=== PATIENT | female | born 1975 | race Caucasian/White ===

== ENCOUNTER 2016-11-29 15:33 | Emergency (ER) | payer MEDICAID, OTHER ==
[2016-11-29 15:58] VITALS: BP 121/66; PULSE 75; RESP 16; TEMP 96.4; O2SAT 94
--- NOTE | 2016-11-29 16:12 | UCPHY ---
H & P Time Seen by Provider: 11/29/16 15:55 Patient Type: Established HPI/ROS: Chief complaint. Abdominal pain HPI. 41-year-old female presents emergency department with lower right abdominal pain that began this morning. She has had fatigue for 1 week. Bilateral leg pain for 1 week. She had diarrhea last evening and then again this morning. Her pain is in the lower right side of her abdomen and described as crampy with radiation to the left side of her abdomen as well as to the left flank. Her discomfort is worse with urination as well as movement. Better when lying still. She has burning after urination. She denies fever nausea vomiting. She also had right upper quadrant pain 2 times this week but not now. She has had a cholecystectomy in the past. ROS Constitutional. no fever/chills, no weakness Eyes. no problems with vision ENT. no sore throat, no nasal drainage Cardiovascular. no chest pain Respiratory. no shortness of breath, no cough Abdominal. Lower right abdominal pain with some diarrhea but no nausea or vomit . Burning after urination MS. no calf pain/swelling, no neck/back pain, no joint pain Skin. no rash Lymph. no swollen glands Neuro. no headache, no dizziness, no difficulty walking or with speech Past Medical/Surgical History: Past medical history seen for interstitial cystitis, gluten sensitive, chronic back pain, cholecystectomy Social History: Single, nonsmoker, no alcohol Smoking Status: Never smoked Physical Exam: General Appearance: Alert well-developed female mild distress vital signs are stable Eyes: Pupils equal and round no pallor or injection. ENT, Mouth: Mucous membranes are moist. Respiratory: There are no retractions, lungs are clear to auscultation. Cardiovascular: Regular rate and rhythm. Gastrointestinal: Abdomen is soft with mild tenderness in the lower right quadrant of her abdomen. No left-sided tenderness. No epigastric or right upper quadrant discomfort. No masses. Normal bowel sounds Neurological: Awake and alert, sensory and motor exams grossly normal. Skin: Warm and dry, no rashes. Musculoskeletal: Neck is supple nontender. Extremities symmetrical, full range of motion. Psychiatric: Patient is oriented X 3, there is no agitation. Constitutional: Initial Vital Signs Temperature (C) 35.8 C L 11/29/16 15:55 Heart Rate 75 11/29/16 15:55 Respiratory Rate 16 11/29/16 15:55 Blood Pressure 121/66 H 11/29/16 15:55 O2 Sat (%) 94 11/29/16 15:55 O2 Delivery Mode Room Air Allergies/Adverse Reactions: Penicillins Allergy (Verified 11/29/16 15:54) Home Medications: Medication Instructions Recorded NK [No Known Home Meds] 11/29/16 Medical Decision Making - Diagnostics Imaging: CT abdomen and pelvis with IV contrast reviewed and discussed with Dr. Ruiz shows normal appendix. No acute findings. Moderate constipation especially in the ascending colon Procedures: IV normal saline. Patient currently declines medication for pain or nausea ED Course/Re-evaluation: Re-evaluation at 6:45 p.m.. The patient and I discussed imaging and lab results. We discussed treatment plan including criteria for return and importance of follow-up and further evaluation. She expresses understanding and agreement Differential Diagnosis: I considered appendicitis, diverticulitis, urinary tract infection and pyelonephritis - Data Points Laboratory Results: Laboratory Results 11/29/16 16:30 11/29/16 16:30 11/29/16 11/29/16 17:15 16:30 WBC 7.20 10^3/uL (3.80-9.50) RBC 4.55 10^6/uL (4.18-5.33) Hgb 13.5 g/dL (12.6-16.3) Hct 39.0 % (38.0-47.0) MCV 85.7 fL (81.5-99.8) MCH 29.7 pg (27.9-34.1) MCHC 34.6 g/dL (32.4-36.7) RDW 13.1 % (11.5-15.2) Plt Count 244 10^3/uL (150-400) MPV 9.9 fL (8.7-11.7) Neut % (Auto) 63.2 % (39.3-74.2) Lymph % (Auto) 26.4 % (15.0-45.0) [place] % (Auto) 7.1 % (4.5-13.0) Eos % (Auto) 2.6 % (0.6-7.6) Baso % (Auto) 0.4 % (0.3-1.7) Nucleat RBC Rel Count 0.0 % (0.0-0.2) Absolute Neuts (auto) 4.55 10^3/uL (1.70-6.50) Absolute Lymphs (auto) 1.90 10^3/uL (1.00-3.00) Absolute Monos (auto) 0.51 10^3/uL (0.30-0.80) Absolute Eos (auto) 0.19 10^3/uL (0.03-0.40) Absolute Basos (auto) 0.03 10^3/uL (0.02-0.10) Absolute Nucleated RBC 0.00 10^3/uL (0-0.01) Immature Gran % 0.3 % (0.0-1.1) Immature Gran # 0.02 10^3/uL (0.00-0.10) Sodium 141 mEq/L (134-144) Potassium 3.9 mEq/L (3.5-5.2) Chloride 106 mEq/L (97-110) Carbon Dioxide 22 mEq/l (22-31) Anion Gap 13 mEq/L (8-16) BUN 17 mg/dL (7-23) Creatinine 0.8 mg/dL (0.6-1.0) Estimated GFR > 60 Glucose 86 mg/dL (70-100) Calcium 9.1 mg/dL (8.5-10.4) Lipase 81.0 IU/L (23-300) Beta HCG, Qual NEGATIVE Urine Color YELLOW Urine Appearance CLEAR Urine pH 6.0 (5.0-7.5) Ur Specific [place] >= 1.030 (1.002-1.030) Urine Protein NEGATIVE (NEGATIVE) Urine Ketones 1+ H (NEGATIVE) Urine Blood NEGATIVE (NEGATIVE) Urine Nitrate NEGATIVE (NEGATIVE) Urine Bilirubin NEGATIVE (NEGATIVE) Urine Urobilinogen 0.2 EU (0.2-1.0) Ur Leukocyte Esterase NEGATIVE (NEGATIVE) Ur Culture Indicated? NOT INDICATED (NI) Urine Glucose NEGATIVE (NEGATIVE) Medications Given: Discontinued Medications Sodium Chloride (Ns) 1,000 mls @ 0 mls/hr IV ONCE ONE PRN Reason: Wide Open Stop: 11/29/16 16:24 Last Admin: 11/29/16 16:40 Dose: 1,000 mls Departure - Departure Disposition: Home, Routine, Self-Care Clinical Impression: Abdominal pain Qualifiers: Abdominal location: right lower quadrant Qualifier Code: (R10.31) Right lower quadrant pain Condition: Good Instructions: Acute Abdominal Pain (ED), Constipation (ED) Additional Instructions: Increased fluids. Tylenol and Advil as needed for discomfort. Return for worsening pain, fever, vomiting. Re-evaluation in 1-2 days for continuing symptoms Referrals: NONE *PRIMARY CARE P,. [Primary Care Provider] - As per Instructions Dinorah Bearden, DO [Doctor of Osteopathy] - 2-3 days, if not improved - PQRS PQRS Measurement: 134: Depression screening and followup, PRIME MD-PHQ2 (12 years and older) Over the last 2 weeks, how often have you been bothered by any of the following problems? 1. Feeling down, depressed, or hopeless? 2. Little interest or pleasure in doing things? Patient answered no to both 1 and 2 130: Documentation of medications. Reviewed all patient medications, doses, route and frequency. 226: Do you smoke? No.
[2016-11-29] MEDS ORDERED: NS 1,000 ML IV ONE (16:23)
[2016-11-29 16:41] LABS: % IMMATURE GRANULYOCYTES 0.3 % (0.0-1.1); ABSOLUTE IMMATURE GRANULOCYTES 0.02 10^3/uL (0.00-0.10); ADD DIFF? NO; ADD MORPH? NO; ADD SCAN? NO; ATYPICAL LYMPHOCYTE FLAG 10 (0-99); FRAGMENT RBC FLAG 0 (0-99); HEMOGLOBIN 13.5 g/dL (12.6-16.3); LEFT SHIFT FLG 0 (0-99); LIPEMIA HEMOLYSIS FLAG 90 (0-99); MEAN CELL HEMOGLOBIN 29.7 pg (27.9-34.1); MEAN CELL HEMOGLOBIN CONCENTR. 34.6 g/dL (32.4-36.7); MEAN CELL VOLUME 85.7 fL (81.5-99.8); MEAN PLATELET VOLUME 9.9 fL (8.7-11.7); PLATELET CLUMPS FLAG 10 (0-99); PLATELET COUNT 244 10^3/uL (150-400); RED BLOOD CELL COUNT 4.55 10^6/uL (4.18-5.33); RED CELL DISTRIBUTION WIDTH 13.1 % (11.5-15.2)
[2016-11-29 16:58] LABS: ANION GAP 13 mEq/L (8-16); CALCIUM 9.1 mg/dL (8.5-10.4); CARBON DIOXIDE 22 mEq/l (22-31); CHLORIDE 106 mEq/L (97-110); CREATININE 0.8 mg/dL (0.6-1.0); GLOMERULAR FILTRATION RATE > 60; GLUCOSE 86 mg/dL (70-100); POTASSIUM 3.9 mEq/L (3.5-5.2); SODIUM 141 mEq/L (134-144)
[2016-11-29 17:20] LABS: COLOR YELLOW; LEUKOCYTE ESTERASE,URINE NEGATIVE (NEGATIVE); NITRITE,URINE NEGATIVE (NEGATIVE)
[2016-11-29] MEDS ORDERED: IOPAMIDOL (ISOVUE-300) 100 ML BTL IV ONE (18:02)
--- NOTE | 2016-11-29 18:48 | CT ---
CT Scan of the Abdomen and Pelvis (With Contrast) 1820 hours History: Right lower quadrant pain. Technique: Axial computed tomographic images of the abdomen and pelvis were obtained with the unevent ful intravenous administration of 90 mL Isovue-300 contrast. No oral or rectal contrast which limits the study. Dose reduction techniques were utilized. CT Abdomen Findings: Lung bases: Normal. Liver: Normal. Biliary system: Gallbladder surgically absent clips in gallbladder fossa. No biliary ductal dilation. Spleen: Normal. Pancreas: Normal. Adrenals: Normal. Kidneys: No obstruction or solid masses. Abdominal Aorta: No aneurysm. No bowel obstruction, ascites, or significant retroperitoneal lymphadenopathy. CT Pelvis Findings: Appendix appears normal without inflammatory changes. Minimal physiologic fluid i n the pelvis. No adnexal masses. No significant pelvic or inguinal adenopathy. No inguinal hernia. Mo derate stool in right colon consistent constipation. Impression: 1. Prior cholecystectomy. 2. Mild constipation. 3. No CT evidence of appendicitis, abscess or bowel obstruction. Findings and recommendations discussed with Emergency Department physician, Sudheer Saucedo at 1635 hour , today. Final report concurs with initial preliminary interpretation.
== END 2016-11-29 18:55 | disposition home or self-care (01) ==
LOC: CED 15:33
DX: R10.31 Right lower quadrant pain (principal); K59.00 Constipation, unspecified; R53.83 Other fatigue; M79.604 Pain in right leg; M79.605 Pain in left leg
CPT/HCPCS: 74177-PO; 80048-PO; 81003-PO; 83690-PO; 84703-PO; 85025-PO; 99215-PO; G0463-PO; Q9967